=== PATIENT | female | born 1975 | race Two or more races ===

== ENCOUNTER 2021-03-24 15:43 | Outpatient (CLI) | payer OTHER | END 2021-03-24 15:44 | disposition home or self-care (01) | LOC: CSHMAMMO 15:43 | PROVIDERS: ATTEND Family Medicine | DX: Z12.31 Encounter for screening mammogram for malignant neoplasm of breast (principal) | CPT/HCPCS: 77063; 77067 ==

== ENCOUNTER 2023-10-18 09:01 | Outpatient (CLI) | payer OTHER | END 2023-10-18 09:02 | disposition home or self-care (01) | LOC: CSHMAMMO 09:01 | PROVIDERS: ATTEND Nurse Practitioner Family | DX: Z12.31 Encounter for screening mammogram for malignant neoplasm of breast (principal) | CPT/HCPCS: 77063; 77067 ==